=== PATIENT | male | born 1975 | race Caucasian/White ===

== ENCOUNTER 2019-12-06 13:43 | Emergency (ER) | payer SELFPAY ==
[2019-12-06 13:44] VITALS: BP 148/104; PULSE 87; RESP 17; TEMP 37.2; O2SAT 96; BMI 24.4
--- NOTE | 2019-12-06 13:52 | XR_ITS ---
WS: [id number] PORTABLE CHEST HISTORY: cough COMPARISON: None available. Lungs are clear and well expanded. No pleural effusion or pneumothorax. Cardiac size: Normal. Mediastinum/Aorta: Normal mediastinum. No osseous abnormality seen. XR/XR chest 1V portable [id number] IMPRESSION: Unremarkable portable chest.
--- NOTE | 2019-12-06 13:52 | CTR_ITS ---
PROCEDURE INFORMATION: Exam: CT Head Without Contrast Exam date and time: 12/06/2019 2:00 PM Age: 44 years old Clinical indication: Pain; Headache not specified; Prior surgery; Surgery date: 6+ months; Surgery type: Facial; Patient HX: C/O JULIEN w fever x 4-5 days; Additional info: Julien/ams TECHNIQUE: Imaging protocol: Computed tomography of the head without contrast. Total DLP: 731.19 mGy-cm Radiation optimization: All CT scans at this facility use at least one of these dose optimization techniques: automated exposure control; mA and/or kV adjustment per patient size (includes targeted exams where dose is matched to clinical indication); or iterative reconstruction. COMPARISON: No relevant prior studies available. FINDINGS: Brain: No hemorrhage. Unremarkable white matter. No mass effect. Ventricles: Normal. No ventriculomegaly. Bones/joints: Unremarkable. No acute fracture. Sinuses: No acute sinusitis. Mastoid air cells: Unremarkable. Soft tissues: Unremarkable. CT/CT head wo con* [id number] IMPRESSION: No acute intracranial abnormality. Radiation Dose CTDIVOL = (mGy): DLP = 731.19 (mGy-cm)
--- NOTE | 2019-12-06 13:54 | W.ED.HA ---
HPI - Headache General: Chief Complaint: Headache Stated Complaint: julien Time Seen by Provider: 12/06/19 13:44 History of Present Illness: HPI Narrative: Ron is a nice 44-year-old male who comes in complaining of headache. He has a headache he states behind his eyes, his temples and his forehead and top of his head. Is been present for the past 5 days and will wax and wane in intensity. He has had associated nausea and vomiting with it. He denies any neck stiffness or pain. He denies any skin rashes or lesions. He has had tick bites in the past but she states he can get sick from tick bites as well. He denies any other complaints. Associated symptoms: Reports nausea and vomiting; Deny chest pain, confusion, diaphoresis, fever(s), malaise, pre-syncope, rash or syncope Review of Systems General: Reports: other (negative unless marked) Const: Denies: fever, chills, body aches, fatigue, malaise or diaphoresis Eyes: Denies: change in vision or blurry vision ENMT: Denies: throat pain, painful swallowing, hoarseness, ear pain, ear discharge, Change in hearing or nasal discharge Card: Denies: chest pain, palpitations, irregular heart rhythm, syncope, pre-syncope, shortness of breath on exertion or shortness of breath when lying down Resp: Denies: shortness of breath, productive cough, non-productive cough, wheezing, coughing up blood or chest congestion GI: Reports: nausea and vomiting; Denies: abdominal pain, vomiting blood, coffee grounds in vomit, diarrhea, constipation, cramping, blood in stool or black tarry stool : Denies: flank pain, difficulty urinating, painful urination, urinary frequency, urinary urgency, decreased urine ouput, urinary incontinence or blood in urine Musc: Denies: neck pain, back pain, extremity pain, extremity swelling, joint pain, joint swelling, joint warmth or joint stiffness Skin/Breast: Denies: rash, skin tenderness or yellow skin Neuro: Reports: headache; Denies: numbness in extremities, weakness in extremities, changes in sensation, lack of coordination, difficulty walking, dizziness, vertigo or confusion Endo: Denies: excessive thirst, tired all the time, cold intolerance, excessive sweating, flushing or hot flashes Rg/Lymph: Denies: easy bruising, easy bleeding, petechiae or enlarged lymph nodes All/Imm: Denies: hives, throat swelling, tongue swelling, facial swelling or acute wheezing PFSH ED PFSH: Medical History (Updated 12/06/19 @ 15:33 by Ana Laura Aguilar) No pertinent past medical history Social History Smoking and tobacco status: current some day smoker Physical Exam Const: COMMON NORMALS: no apparent distress, oriented x3, no limitations, healthy appearing and well nourished EXAM LIMITATIONS: no altered mental status GENERAL APPEARANCE: cooperative, well kempt and well developed ORIENTATION/CONSCIOUSNESS: Yes awake HENMT: COMMON NORMALS: normocephalic, head/scalp atraumatic, hearing grossly normal bilaterally, external ears normal, EAC's normal, external nose normal and moist oral mucous membranes HEAD & SCALP: normal to inspection, normocephalic and atraumatic FACE & SINUS: normal facial exam and face symmetric NOSE: external nose normal and nares normal EXTERNAL EAR: Yes external ears normal EXTERNAL AUDITORY CANAL: EAC's normal MOUTH: oral and palatal mucosa normal and tongue normal Eye: COMMON NORMALS: PERRL, EOMs intact bilaterally, conjunctivae normal and no scleral icterus GENERAL EYE: normal appearance of both eyes and normal light reflex CONJUNCTIVA: Yes conjunctivae normal SCLERA: sclerae normal CORNEA: Yes corneas normal PUPIL: Yes PERRL DIRECT OPHTHALMOSCOPY: Yes normal light reflex Neck/C-Spine: COMMON NORMALS: full ROM, no lymphadenopathy, supple, no meningeal signs and no JVD GENERAL: Yes normal visual inspection and Yes trachea midline CERVICAL SPINE: Yes cervical ROM normal Chest: COMMONS NORMALS: inspection of chest normal and palpation of chest normal Resp: COMMON NORMALS: normal respiratory effort, no retractions, no use of accessory muscles and clear to auscultation bilaterally EFFORT & INSPECTION: Yes able to speak in complete sentences AUSCULTATION: clear to auscultation bilaterally Cardio: COMMON NORMALS: no JVD, regular rate, regular rhythm, S1 normal heart sound, S2 normal heart sound, no gallops, no clicks, no murmurs and no rub JUGULAR VENOUS DISTENTION: no JVD RATE: regular rate RHYTHM: regular rhythm HEART SOUNDS: S1 normal and S2 normal GI: COMMON NORMALS: soft to palpation, non-tender, no hepatosplenomegaly and no masses INSPECTION: Yes normal to inspection PALPATION: Yes soft and Yes no hepatosplenomegaly : COMMON NORMALS: Yes no CVA tenderness BLADDER/KIDNEY EXAM: Yes no CVA tenderness Back/Pelvis: COMMON NORMALS: no CVA tenderness, thoracic and lumbar spine normal to inspection, no thoracic nor lumbar tenderness and thoraco-lumbar ROM normal Extremity: COMMON NORMALS: normal to inspection, full ROM, normal capillary refill, no joint enlargement, no clubbing, cyanosis or edema and no calf tenderness Neuro: COMMON NORMALS: oriented x3, CN's II-XII intact bilaterally, moves all extremities, no focal motor deficits and no sensory deficits noted MENINGEAL SIGNS: Yes no meningeal signs Psych: COMMON NORMALS: mental status grossly normal, thought process normal, cooperative, affect normal, speech normal and activity/motor behavior normal APPEARANCE: Yes well kempt SPEECH: Yes normal speech THOUGHT PROCESS: normal thought process Skin: COMMON NORMALS: no rashes or lesions noted, skin turgor normal, no jaundice, no petechiae and no mottling GENERAL SKIN EXAM: no rashes or lesions noted and turgor normal Course ED course: 0230 -I have had a discussion with the patient in regards to his normal head CT. I have informed him I believe we will need to do 2 things moving forward. First I have informed him I believe a lumbar puncture/spinal tap is necessary to rule out meningitis as a cause for his pain but he is refusing at this time. I made him aware of the potential for or severe permanent disability by missing this but he believes that since his fever has resolved he no longer would have anything like this and he is refusing that procedure at this time. The other issue is his low sodium. 126 is a change for him and I believe he would be benefited from coming in for gentle slow rehydration but he is also refusing this at this time. The patient said he will continue to consider this as I give him some fluids here but he does not want to stay in the hospital nor does he want a spinal tap. Vital Signs: Vital signs: Vital Signs Temperature 98.9 F 12/06/19 13:44 Pulse Rate 87 12/06/19 13:44 Respiratory Rate 17 12/06/19 13:44 Blood Pressure 148/104 12/06/19 13:44 Pulse Oximetry 96 12/06/19 13:44 MDM - Headache MDM Narrative: Medical decision making narrative: Ron is a nice 44-year-old male who comes in complaining of headache. I would like to perform a spinal tap to rule out meningitis but he is still refusing. He does not have a fever today and he has no neck pain or stiffness. His white count is slightly elevated. I reviewed with him at length the risks of missing meningitis by him not allowing us to do a spinal tap but he understands. I do not believe he thinks the risks are as high as I have told him but he was able to ask questions to his satisfaction and with my answers was able to ask more questions and seems to be satisfied and is still declining this test. I then recommended observation admission to treat his hyponatremia which also could be causing his headache but he is refusing this as well. I discussed the case with Dr. Head who sees the patient at [facility] and he understands the patient's decisions. He agrees to recheck the patient in his office in the next 1 to 3 days to see how he is doing clinically and to recheck his sodium. The patient understands that he needs to do this and he will follow a fluid restricted diet and try to increase his salt intake. Lab Data: Attestation: I reviewed the patient's lab results. Labs: Lab Results 12/06/19 12/06/19 Range/Units 13:58 13:58 WBC 12.9 H (4.0-10.0) 10^3/ uL RBC 5.18 (4.1-5.3) 10^6/u L Hgb 17.2 H (11.7-16.6) g/dL Hct 48.0 (42.0-52.0) % MCV 92.7 (80-94) fL MCH 33.2 (28.0-34.0) pg MCHC 35.8 (30.0-36.0) g/dL RDW 11.2 L (12.1-15.1) % Plt Count 278 (130-400) 10^3/c mm MPV 9.8 (7.4-10.4) fL Neut % (Auto) 71.2 % Lymph % (Auto) 17.4 % [place] % (Auto) 10.0 % Eos % (Auto) 0.7 % Baso % (Auto) 0.5 % Neut # (Auto) 9.2 H (1.8-7.7) 10^3/u L Lymph # (Auto) 2.3 (0.8-4.8) 10^3/u L [place] # (Auto) 1.3 H (0.2-0.9) 10^3/u L Eos # (Auto) 0.1 (0.0-0.8) 10^3/u L Baso # (Auto) 0.1 (0.0-0.1) 10^3/u L Nucleated RBC % (a uto) 0 % Nucleated RBCs # 0.0 /100WBC Sodium 126 L (136-145) mmol/L Potassium 4.2 (3.5-5.1) mmol/L Chloride 88 L (98-107) mmol/L Carbon Dioxide 24 (22-29) mmol/L Anion Gap 18.2 (5-19) BUN 13 (6-20) mg/dL Creatinine 0.9 (0.7-1.2) mg/dL GFR Calculation 92.5 (90-130) mL/min Glucose 120 H (65-115) mg/dL Calculated Osmolal ity 259 L (285-295) mOsm/k g Calcium 9.2 (8.5-10.5) mg/dL Total Bilirubin 1.0 (0.15-1.2) mg/dL AST 14 (0-40) U/L ALT 15 (0-41) U/L Alkaline Phosphata se 80 (40-130) IU/L Total Protein 7.6 (6.6-8.7) g/dL Albumin 4.6 (3.5-5.2) g/dL Globulin 3.0 (1.3-4.6) g/dL Imaging Data^: CT Head: Radiologist's impression: [address] [place] [address] CT Scan Report Signed Patient: Ron Feldman Unit #: [id number] : 1975 Age/Sex: 44 / M ADM Date: 12/06/19 Loc: ER Room/Bed: Attending Dr: Ordering Provider/Ordering MD: Ana Laura Aguilar DO Date of Service: 12/06/19 Procedure(s): CT head wo con* [id number] Accession Number(s): [id number] Report Number: [id number] PROCEDURE INFORMATION: Exam: CT Head Without Contrast Exam date and time: 12/06/2019 2:00 PM Age: 44 years old Clinical indication: Pain; Headache not specified; Prior surgery; Surgery date: 6+ months; Surgery type: Facial; Patient HX: C/O JULIEN w fever x 4-5 days; Additional info: Julien/ams TECHNIQUE: Imaging protocol: Computed tomography of the head without contrast. Total DLP: 731.19 mGy-cm Radiation optimization: All CT scans at this facility use at least one of these dose optimization techniques: automated exposure control; mA and/or kV adjustment per patient size (includes targeted exams where dose is matched to clinical indication); or iterative reconstruction. COMPARISON: No relevant prior studies available. FINDINGS: Brain: No hemorrhage. Unremarkable white matter. No mass effect. Ventricles: Normal. No ventriculomegaly. Bones/joints: Unremarkable. No acute fracture. Sinuses: No acute sinusitis. Mastoid air cells: Unremarkable. Soft tissues: Unremarkable. CT/CT head wo con* [id number] IMPRESSION: No acute intracranial abnormality. Radiation Dose CTDIVOL = (mGy): DLP = 731.19 (mGy-cm) Dictated By: Luis Bartlett MD Signed By: Luis Bartlett MD Signed Date/Time: 12/06/191421 DD/ 20 CXR: My impression: Possible right middle lobe infiltrate. Discharge Plan Discharge Patient Disposition: Home, Self-Care Clinical Impression: Acute hyponatremia Headache Qualifiers: Headache type: unspecified Headache chronicity pattern: acute headache Intractability: not intractable Qualified Code(s): R51 - Headache Pneumonia Qualifiers: Pneumonia type: due to unspecified organism Laterality: right Lung location: middle lobe of lung Qualified Code(s): J18.9 - Pneumonia, unspecified organism Condition: Stable Prescriptions: New Levaquin 500 mg tablet 500 mg PO DAILY 10 Days RF: 0 No Action Multiple Vitamins Tablet 1 tab PO DAILY RF: 0 Discharge Orders: Discharge Order (Routine); Ordered 12/06/19 Ordered By: Ana Laura Aguilar Referrals: Kraig Ortez MD [Family Provider] - 1-3 days Discharge Diet: Advance as tolerated Discharge Activity: Resume usual activity Patient Instructions: Hyponatremia (ED), Acute Headache (ED), Legionnaires Disease (ED), Pneumonia (ED) Activity Restrictions/Additional Instructions: Please return to the ER immediately for any of the signs or symptoms listed on your discharge instruction sheets, worsening/changing of your symptoms, you are not getting better as quickly as expected, or for ANY other cause or concerns. You are leaving AGAINST MEDICAL ADVICE as I have advised you to stay for observation and IV hydration. By leaving you put yourself at risk of or severe permanent disability by doing so. If you change your mind you are more than welcome to return at any time. Be certain to follow-up with Dr. Head or 1 of the physicians at [facility] in the next 1 to 2 days for recheck. Limit the amount of water intake that you have over the next 2 days and try to increase your salt intake. Discuss your fluid intake with the [facility] physician in the next 1 to 2 days. Coding Level of Care Code ED Fundraising Director for [facility] Fwd Exam Comprehensive
[2019-12-06 14:05] LABS: Basophils # 0.1 10^3/uL (0.0-0.1); Basophils % 0.5 %; Eosinophils # 0.1 10^3/uL (0.0-0.8); Eosinophils % 0.7 %; Hemoglobin 17.2 g/dL (11.7-16.6); Lymphocytes # 2.3 10^3/uL (0.8-4.8); Lymphocytes % 17.4 %; Mean Corpuscular HGB Conc 35.8 g/dL (30.0-36.0); Mean Corpuscular Hemoglobin 33.2 pg (28.0-34.0); Mean Corpuscular Volume 92.7 fL (80-94); Mean Platelet Volume 9.8 fL (7.4-10.4); Monocytes # 1.3 10^3/uL (0.2-0.9); Neutrophils # 9.2 10^3/uL (1.8-7.7); Neutrophils % 71.2 %; Nucleated Red Blood Cells % 0 %; Platelet Count 278 10^3/cmm (130-400); Red Blood Count 5.18 10^6/uL (4.1-5.3); Red Cell Distribution Width 11.2 % (12.1-15.1); White Blood Count 12.9 10^3/uL (4.0-10.0)
[2019-12-06 14:21] LABS: Alanine Aminotransferase 15 U/L (0-41); Albumin Level 4.6 g/dL (3.5-5.2); Alkaline Phosphatase 80 IU/L (40-130); Anion Gap 18.2 (5-19); Aspartate Amino Transferase 14 U/L (0-40); Blood Urea Nitrogen 13 mg/dL (6-20); Calcium 9.2 mg/dL (8.5-10.5); Carbon Dioxide 24 mmol/L (22-29); Chloride 88 mmol/L (98-107); Glomerular Filtration Rate 92.5 mL/min (90-130); Glucose 120 mg/dL (65-115); Osmolality Calculated 259 mOsm/kg (285-295); Potassium 4.2 mmol/L (3.5-5.1); Sodium 126 mmol/L (136-145); Total Protein 7.6 g/dL (6.6-8.7)
[2019-12-06] MEDS: sodium chloride 0.9% 1,000 ML 999 ML IV ×2 (15:22→15:40)
[2019-12-06] MEDS: metoclopramide 5 mg/mL SDV 2 mL 10 MG IV (15:41)
[2019-12-06] MEDS: diphenhydrAMINE 50 mg/mL SDV 1mL 25 MG IVP (15:42)
[2019-12-06 15:54] LABS: Glucose Urine UA Norm (Normal); Protein Urine Neg (Negative); Urine Appearance Clear (CLEAR); Urine Color Yellow (Yellow); pH Urine 5 (5-7)
[2019-12-06 15:55] LABS: Bilirubin Urine 1+ (NEGATIVE); Blood Urine Neg (Negative); Ketones Urine 1+ (Negative); Leukocyte Esterase Urine Negative (Negative); Nitrate Urine Negative (Negative); Sulfosalicylic Acid Urine Negative (Negative); Urobilinogen Urine 4 mg/dL (Negative)
[2019-12-06 16:02] LABS: Add Urine Culture? No; Bacteria Urine 1+; Mucus Urine 1+; WBC Urine 0-4 /hpf (0-5)
[2019-12-06 16:10] LABS: Influenza A by IFA Negative (Negative); Influenza B by IFA Negative (Negative)
[2019-12-06] MEDS: levoFLOXacin 500 mg Tablet PO (16:27)
[2019-12-06 16:31] VITALS: BP 114/80; PULSE 76; RESP 18; TEMP 37.1; O2SAT 96
== END 2019-12-06 16:52 | disposition home or self-care (01) ==
PROVIDERS: Emergency Provider Emergency Medicine; Family Provider General Practice
DX: R51 Headache (principal); J18.9 Pneumonia, unspecified organism; E87.1 Hypo-osmolality and hyponatremia; F17.210 Nicotine dependence, cigarettes, uncomplicated
CPT/HCPCS: 12345; 70450; 71045; 80053; 81001; 85025; 87804; 96361; 96374; 96375; 99283; 99284; A9270; J0131; J1200; J2765; J7030

== ENCOUNTER 2019-12-08 09:06 | Inpatient (IN) | payer SELFPAY ==
[2019-12-08] VITALS (17 sets, daily range): BP systolic 112–139; BP diastolic 69–93; PULSE 61–90; RESP 16–22; TEMP 36.9–37.1; O2SAT 92–98; BMI 25.0
--- NOTE | 2019-12-08 10:26 | W.ED.GENADLT ---
HPI - General Adult General: Chief complaint: General Medical Stated complaint: POSS MENINGITIS Time Seen by Provider: 12/08/19 09:20 Review of Systems General: Reports: 10 or more systems reviewed and unremarkable except in HPI and below Narrative: Patient was seen in the emergency department 2 days ago. That time the provider wanted to do a lumbar puncture to rule out meningitis as the patient has had a severe headache for several days. Patient refused the LP but returns today with complaint of continued and increasing in severity headache. Musc: Reports: neck pain PFSH ED PFSH: Medical History No pertinent past medical history Social History Smoking and tobacco status: current every day smoker Physical Exam Const: COMMON NORMALS: oriented x3 and alert ORIENTATION/CONSCIOUSNESS: Yes oriented to person, Yes oriented to place and Yes oriented to time Neck/C-Spine: COMMON NORMALS: no JVD Resp: COMMON NORMALS: normal respiratory effort, no retractions, no use of accessory muscles and clear to auscultation bilaterally AUSCULTATION: clear to auscultation bilaterally Cardio: COMMON NORMALS: no JVD, regular rate and regular rhythm RATE: regular rate RHYTHM: regular rhythm GI: COMMON NORMALS: normal to inspection, nondistended, normoactive bowel sounds Extremity: COMMON NORMALS: normal to inspection, full ROM and normal capillary refill Neuro: COMMON NORMALS: oriented x3 SENSORIUM/ORIENTATION: Yes alert, Yes oriented to person, Yes oriented to place and Yes oriented to time MENINGEAL SIGNS: Yes nuccal rigidity (minimal) Procedures Lumbar Puncture Patient Position: right lateral decubitus Skin Prep: Povidone-Iodine 1% Local Anesthetic: lidocaine 1% Spinal Needle Gauge: 22G Interspace Used: L4-L5 Fluid Initially Obtained: clear Complications: none Course Vital Signs: Vital signs: Vital Signs Temperature 98.5 F 12/08/19 09:15 Pulse Rate 90 12/08/19 09:15 Respiratory Rate 18 12/08/19 10:57 Blood Pressure 139/93 12/08/19 09:15 Pulse Oximetry 96 12/08/19 10:57 MDM - General Adult Lab Data: Labs: Lab Results 04/28/20 04/28/20 04/28/20 Range/Units 10:25 10:25 10:25 WBC 12.8 H (4.0-10.0) 10^3/ uL RBC 5.19 (4.1-5.3) 10^6/u L Hgb 17.1 H (11.7-16.6) g/dL Hct 48.1 (42.0-52.0) % MCV 92.7 (80-94) fL MCH 32.9 (28.0-34.0) pg MCHC 35.6 (30.0-36.0) g/dL RDW 11.2 L (12.1-15.1) % Plt Count 266 (130-400) 10^3/c mm MPV 10.1 (7.4-10.4) fL Neut % (Auto) 76.7 % Lymph % (Auto) 12.6 % [place] % (Auto) 9.3 % Eos % (Auto) 0.4 % Baso % (Auto) 0.5 % Neut # (Auto) 9.8 H (1.8-7.7) 10^3/u L Lymph # (Auto) 1.6 (0.8-4.8) 10^3/u L [place] # (Auto) 1.2 H (0.2-0.9) 10^3/u L Eos # (Auto) 0.1 (0.0-0.8) 10^3/u L Baso # (Auto) 0.1 (0.0-0.1) 10^3/u L Nucleated RBC % (a uto) 0 % Nucleated RBCs # 0.0 /100WBC Sodium 127 L (136-145) mmol/L Potassium 4.3 (3.5-5.1) mmol/L Chloride 89 L (98-107) mmol/L Carbon Dioxide 24 (22-29) mmol/L Anion Gap 18.3 (5-19) BUN 10 (6-20) mg/dL Creatinine 0.8 (0.7-1.2) mg/dL GFR Calculation 106.0 (90-130) mL/min Glucose 116 H (65-115) mg/dL Calculated Osmolal ity 261 L (285-295) mOsm/k g Lactate 1.0 (0.5-2.2) mmol/L Calcium 8.9 (8.5-10.5) mg/dL Total Bilirubin 0.9 (0.15-1.2) mg/dL AST 12 (0-40) U/L ALT 14 (0-41) U/L Alkaline Phosphata se 72 (40-130) IU/L Total Protein 7.4 (6.6-8.7) g/dL Albumin 4.5 (3.5-5.2) g/dL Globulin 2.9 (1.3-4.6) g/dL CSF Appearance (CLEAR) CSF Color (COLORLESS) CSF WBC (0-5) /uL CSF RBC (0-0) 10^3/uL CSF Mononuclear # Auto (50-90) 10^3/uL CSF Mononuclear WB Cs % (50-90) % CSF Polynuclear WB Cs # (0-10) 10^3/uL CSF Polynuclear WB Cs % (0-10) % CSF Glucose (40-70) mg/dL CSF Total Protein (15-45) mg/dL 12/08/19 Range/Units 11:40 WBC (4.0-10.0) 10^3/ uL RBC (4.1-5.3) 10^6/u L Hgb (11.7-16.6) g/dL Hct (42.0-52.0) % MCV (80-94) fL MCH (28.0-34.0) pg MCHC (30.0-36.0) g/dL RDW (12.1-15.1) % Plt Count (130-400) 10^3/c mm MPV (7.4-10.4) fL Neut % (Auto) % Lymph % (Auto) % [place] % (Auto) % Eos % (Auto) % Baso % (Auto) % Neut # (Auto) (1.8-7.7) 10^3/u L Lymph # (Auto) (0.8-4.8) 10^3/u L [place] # (Auto) (0.2-0.9) 10^3/u L Eos # (Auto) (0.0-0.8) 10^3/u L Baso # (Auto) (0.0-0.1) 10^3/u L Nucleated RBC % (a uto) % Nucleated RBCs # /100WBC Sodium (136-145) mmol/L Potassium (3.5-5.1) mmol/L Chloride (98-107) mmol/L Carbon Dioxide (22-29) mmol/L Anion Gap (5-19) BUN (6-20) mg/dL Creatinine (0.7-1.2) mg/dL GFR Calculation (90-130) mL/min Glucose (65-115) mg/dL Calculated Osmolal ity (285-295) mOsm/k g Lactate (0.5-2.2) mmol/L Calcium (8.5-10.5) mg/dL Total Bilirubin (0.15-1.2) mg/dL AST (0-40) U/L ALT (0-41) U/L Alkaline Phosphata se (40-130) IU/L Total Protein (6.6-8.7) g/dL Albumin (3.5-5.2) g/dL Globulin (1.3-4.6) g/dL CSF Appearance Clear (CLEAR) CSF Color Colorless (COLORLESS) CSF WBC 69 H (0-5) /uL CSF RBC 0 (0-0) 10^3/uL CSF Mononuclear # Auto 0.067 L (50-90) 10^3/uL CSF Mononuclear WB Cs % 97 H (50-90) % CSF Polynuclear WB Cs # 0.002 (0-10) 10^3/uL CSF Polynuclear WB Cs % 3 (0-10) % CSF Glucose 61 (40-70) mg/dL CSF Total Protein 85 H (15-45) mg/dL Discharge Plan Discharge Patient Disposition: Admitted As Inpatient Clinical Impression: Meningitis, Acute hyponatremia Headache Qualifiers: Headache type: unspecified Headache chronicity pattern: acute headache Intractability: intractable Qualified Code(s): R51 - Headache Condition: Fair Referrals: Kraig Ortez MD [Family Provider] - Coding Level of Care Code ED Gym Manager for [facility] Fwd Exam Detailed
[2019-12-08 10:37] LABS: Basophils # 0.1 10^3/uL (0.0-0.1); Basophils % 0.5 %; Eosinophils # 0.1 10^3/uL (0.0-0.8); Eosinophils % 0.4 %; Hematocrit 48.1 % (42.0-52.0); Hemoglobin 17.1 g/dL (11.7-16.6); Lymphocytes # 1.6 10^3/uL (0.8-4.8); Lymphocytes % 12.6 %; Mean Corpuscular HGB Conc 35.6 g/dL (30.0-36.0); Mean Corpuscular Hemoglobin 32.9 pg (28.0-34.0); Mean Corpuscular Volume 92.7 fL (80-94); Mean Platelet Volume 10.1 fL (7.4-10.4); Monocytes # 1.2 10^3/uL (0.2-0.9); Monocytes % 9.3 %; Neutrophils # 9.8 10^3/uL (1.8-7.7); Neutrophils % 76.7 %; Nucleated Red Blood Cells % 0 %; Platelet Count 266 10^3/cmm (130-400); Red Blood Count 5.19 10^6/uL (4.1-5.3); Red Cell Distribution Width 11.2 % (12.1-15.1); White Blood Count 12.8 10^3/uL (4.0-10.0)
[2019-12-08] MEDS: ondansetron 2 mg/ML SDV 2 mL 4 MG IVP ×2 (10:48→13:48)
[2019-12-08 10:51] LABS: Alanine Aminotransferase 14 U/L (0-41); Albumin Level 4.5 g/dL (3.5-5.2); Alkaline Phosphatase 72 IU/L (40-130); Anion Gap 18.3 (5-19); Aspartate Amino Transferase 12 U/L (0-40); Blood Urea Nitrogen 10 mg/dL (6-20); Calcium 8.9 mg/dL (8.5-10.5); Carbon Dioxide 24 mmol/L (22-29); Chloride 89 mmol/L (98-107); Globulin 2.9 g/dL (1.3-4.6); Glucose 116 mg/dL (65-115); Osmolality Calculated 261 mOsm/kg (285-295); Potassium 4.3 mmol/L (3.5-5.1); Sodium 127 mmol/L (136-145); Total Bilirubin 0.9 mg/dL (0.15-1.2); Total Protein 7.4 g/dL (6.6-8.7)
[2019-12-08] MEDS: ketorolac 30 mg/mL INJ IVP (10:51)
[2019-12-08] MEDS: dexamethasone 10 mg/mL INJ IVP (10:53)
[2019-12-08] MEDS: diphenhydrAMINE 50 mg/mL SDV 1mL IVP (10:55)
[2019-12-08] MEDS: morphine 4 mg/mL SDV 1 mL 2 MG IVP ×2 (10:57→13:48)
[2019-12-08 12:09] LABS: CSF Mononuclear # 0.067 10^3/uL (50-90); Mononuclear WBC CSF % 97 % (50-90); Polynuclear Cells ,CSF # 0.002 10^3/uL (0-10); Polynuclear WBC CSF % 3 % (0-10); Red Blood Cell CSF 0 10^3/uL (0-0); White Blood Cell CSF 69 /uL (0-5)
[2019-12-08 12:12] LABS: Appearance CSF CLEAR (CLEAR); Color CSF COLORLESS (COLORLESS)
[2019-12-08 12:23] LABS: Glucose CSF 61 mg/dL (40-70); Total Protein CSF 85 mg/dL (15-45)
[2019-12-08] MEDS: cefTRIAXone 1,000 MG in sodium chloride 0.9% (plus) 50 ML 100 MG IV ×2 (13:47→19:19)
[2019-12-08] MEDS: sodium chloride 0.9% 1,000 ML 100 ML IV ×2 (13:47→21:54)
[2019-12-08] MEDS: acetaminophen 325 mg Tablet 650 MG PO (13:48)
[2019-12-08 17:16] LABS: Thyroid Stimulating Hormone 0.82 uIU/mL (0.27-4.20)
[2019-12-08 17:23] LABS: Rapid Plasma Reagin Syphilis Nonreactive (Nonreactive)
[2019-12-08] MEDS: enoxaparin 40 mg/0.4 mL Syringe SUBCUT (18:47)
--- NOTE | 2019-12-08 19:18 | P.HP_ITS ---
Providers/Chief Complaint Admitting Physician: Clair Sexton MD Chief Complaint: MENINGITIS History of Present Illness Ron Feldman is a 44 year old male with some significant past medical history who presents with complaints of headache and neck stiffness. Patient was in his usual state of health until Saturday(today is Saturday) when upon returning home from work he started to complain of intense headache. He says he went right to bed he was noted to have chills and intense sweating, checked his temperature at home and it was 804 Fahrenheit. Through the week he continued to have headache and intermittent chills, however he did not check his temperature again. He Presented to the emergency room 2 days ago with these above complaints and at that time underwent a CT of the head which was unremarkable. He was noted to have a sodium of 127. Was also recommended to undergo an LP to rule out meningitis, however he declined and elected to return home with PCP follow-up. He returns today because his headache was worsening. Since presentation to the ER he has undergone an lumbar puncture which is showed elevated protein and elevated cell count, predominantly monocytosis. He has received a dose of ceftriaxone 1 g IV and states feeling much better these interventions were instituted. He denies any recent URI symptoms. Denies any sick contacts. Denies any contact with anybody with known COVID. Denies recent travel. 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 He did deliver some calves recently. No history of animal bites. No history of consumption of unpasteurized products. No history of diarrhea or abdominal pain. He does report vomiting 1-2 episodes per day since onset of symptoms and also photophobia. No past history of HIV. No rashes. He has recently been pulling ticks off of him on multiple occassions Review of Systems General: Reports: 10 or more systems reviewed and unremarkable except in HPI and below Const: Denies: fever, chills or body aches Eyes: Denies: change in vision, blurry vision or photophobia ENMT: Denies: throat pain, enlarged tonsils, painful swallowing, hoarseness or nasal congestion Card: Denies: chest pain, palpitations, irregular heart rhythm, edema, swelling of feet/ankles, lightheadedness, pre-syncope, shortness of breath on exertion or shortness of breath when lying down Resp: Denies: shortness of breath, productive cough, non-productive cough, wheezing, stridor, pain on inspiration, change in phlegm color, coughing up blo od or chest congestion GI: Denies: abdominal pain, nausea, vomiting, vomiting blood, coffee grounds in vomit, difficulty swallowing, heartburn/indigestion, diarrhea, constipation, cramping, change in stool character, blood in stool or black tarry stool : Denies: flank pain, painful urination, urinary frequency, urinary urgency, urinary hesitancy or blood in urine Musc: Reports: neck pain; Denies: back pain, extremity pain, joint swelling, joint warmth or deformity Neuro: Reports: headache and difficulty walking; Denies: numbness in extremities, weakness in extremities, changes in sensation, frequent falls, dizziness, vertigo, behavioral changes, slurred speech or seizure-like activity Psych: Denies: anxiety, depression, suicidal ideation or homicidal ideation Endo: Reports: hot flashes; Denies: excessive urination, excessive thirst, tired all the time or cold intolerance Rg/Lymph: Denies: easy bruising or easy bleeding Medications/Allergies Home Medications Medication Instructions Recorded Confirmed Last Taken Type levofloxacin [Levaquin] 500 mg PO DAILY 10 Days tab 12/06/19 12/08/19 12/08/19 Rx multivitamin [Multiple Vitamins] 1 tab PO DAILY 12/06/19 12/08/19 12/02/19 History Allergies Allergy/AdvReac Type Severity Reaction Status Date / Time Penicillins Allergy ALGY-Anaphy Verified 12/06/19 13:53 laxis PFSH Acute PFSH: Medical History No pertinent past medical history Social History Smoking and tobacco status: current every day smoker Vitals/I&O/Wt Last Vital Signs Temp 98.7 F 12/08/19 14:50 Pulse 61 12/08/19 16:24 Resp 16 12/08/19 16:24 BP 112/69 12/08/19 16:24 Pulse Ox 96 12/08/19 16:24 12/08/19 12/08/19 12/08/19 06:59 14:59 22:59 Intake Total 1050 / 1050 Balance 1050 / 1050 Weight last 48 hrs Weight 83.915 kg Physical Exam Narrative: EXAM NARRATIVE: GEN: Awake, alert and oriented, no acute distress CVS: S1S2 N RS: CTA B/L Abd: Soft, nt/nd , bs+ PHOTOGRAPHY ASSISTANT: no focal neuro deficits, no neck stiffness at present time, however patient states this is improving Skin : no rashes ext: no joint swelling or edema Data : 12/08/19 10:25 12/08/19 10:25 Micro: Microbiology 12/08/19 11:40 Bacterial Antigens - Final Cerebrospinal Fluid 12/08/19 11:40 Gram Stain - Final Cerebrospinal Fluid 12/08/19 10:30 Blood Culture - Preliminary Blood SPECIMEN COLLECTED 12/08/19 10:25 Blood Culture - Preliminary Blood SPECIMEN COLLECTED A&P Assessment and plan (1) Headache: Status: Acute Qualifiers: Headache chronicity pattern: acute headache Headache type: unspecified Intractability: intractable Qualified Code(s): R51 - Headache (2) Meningitis: Status: Acute (3) Acute hyponatremia: Status: Acute Additional A&P Information Admit to med/surg # Meningitis based on clinical history and LP findings of elevated cell count and protein. CSF glucose normal. No organisms on gram stain. Based on duration of symptoms ongoing for a week and CSF analysis, suspect most likely cause to be aseptic viral meningitis vs tick borne illness. CSF cx pending Added on CSF lyme antibodies, CSF VDRL, CSF bacterial antigen panel, CSF HSV1/2 PCR From serum, check tick panel, lyme serology, RPR, HIV COVID 19 nasal swab and viral respiratory panel Empiric Ceftriaxone 2 g iv q24h, holding off on ACV for now given low suspicion for HSV meningitis # Hyponatremia, presumably acute, no baseline available, may be 2/2 dehydration. Check urine osm, urine sodium. Check serum TG levels. Full code DVt ppx: lovenox Attestations Medical Necessity Statement*: anticipate >2 midnight for work up and management of meningitis Coding Level of Care Code Acute Supervisor Agency Appointments for Chg Fwd Diagnoses Headache R51 Headache chronicity pattern: acute headache Headache type: unspecified Intractability: intractable Meningitis G03.9 Acute hyponatremia E87.1
[2019-12-09] VITALS (15 sets, daily range): BP systolic 108–136; BP diastolic 63–84; PULSE 60–87; RESP 14–22; TEMP 36.7–37.2; O2SAT 93–97; BMI 21.9
[2019-12-09 01:13] LABS: HIV 1 & 2 Antibody Non-Reactive (Non-Reactiv); HIV 1 & 2 Antigen Non-Reactive (Non-Reactiv)
[2019-12-09 02:00] LABS: Urine Random Sodium 23 mmol/L
[2019-12-09] MEDS: acetaminophen 325 mg Tablet 650 MG PO ×3 (04:11→23:30)
[2019-12-09 04:48] LABS: Basophils # 0.1 10^3/uL (0.0-0.1); Basophils % 0.5 %; Eosinophils # 0.1 10^3/uL (0.0-0.8); Eosinophils % 0.5 %; Hematocrit 43.3 % (42.0-52.0); Lymphocytes # 3.6 10^3/uL (0.8-4.8); Lymphocytes % 23.7 %; Mean Corpuscular HGB Conc 34.6 g/dL (30.0-36.0); Mean Corpuscular Hemoglobin 33.9 pg (28.0-34.0); Mean Platelet Volume 10.5 fL (7.4-10.4); Monocytes # 1.3 10^3/uL (0.2-0.9); Monocytes % 8.9 %; Neutrophils # 9.9 10^3/uL (1.8-7.7); Neutrophils % 65.7 %; Nucleated Red Blood Cells % 0 %; Platelet Count 227 10^3/cmm (130-400); Red Blood Count 4.42 10^6/uL (4.1-5.3); Red Cell Distribution Width 11.4 % (12.1-15.1); White Blood Count 15.1 10^3/uL (4.0-10.0)
[2019-12-09 05:04] LABS: Alanine Aminotransferase 10 U/L (0-41); Albumin Level 3.5 g/dL (3.5-5.2); Alkaline Phosphatase 65 IU/L (40-130); Anion Gap 13.6 (5-19); Aspartate Amino Transferase 13 U/L (0-40); Blood Urea Nitrogen 14 mg/dL (6-20); Carbon Dioxide 24 mmol/L (22-29); Chloride 98 mmol/L (98-107); Globulin 2.3 g/dL (1.3-4.6); Glomerular Filtration Rate 81.9 mL/min (90-130); Glucose 95 mg/dL (65-115); Osmolality Calculated 270 mOsm/kg (285-295); Potassium 3.6 mmol/L (3.5-5.1); Sodium 132 mmol/L (136-145); Total Bilirubin 0.7 mg/dL (0.15-1.2); Total Protein 5.8 g/dL (6.6-8.7)
--- NOTE | 2019-12-09 06:32 | PC.NURSE ---
SHIFT SUMMARY PT HAS REMAINED ALERT AND ORIENTATED. PT HAS COMPLAINED OF MILD HEADACHE AND WAS GIVEN TYLENOL. PT ABLE TO GET UP AD CHIP. PT HAS BEEN AFEBRILE. PT HAS NOT COMPLAINED OF ANY NECK STIFFNESS AT THIS TIME.
--- NOTE | 2019-12-09 08:47 | PM.PN ---
Subjective Subjective: Interval history: Ron reports he is doing okay. Headache is much less. Still some neck no stiffness. No vomiting or nausea. Ate well this morning. Willing to try doxycycline again, he had taken 3 doses prior to presentation. Medications: Reviewed: Yes Vitals/I&O/Wt Last Vital Signs Temp 98.3 F 12/09/19 08:34 Pulse 73 12/09/19 08:34 Resp 14 12/09/19 08:34 BP 117/73 12/09/19 08:34 Pulse Ox 95 12/09/19 08:34 12/08/19 12/09/19 12/09/19 22:59 06:59 14:59 Intake Total 1050 / 1050 120 / 1170 Output Total 400 / 400 Balance 650 / 650 120 / 770 Weight last 48 hrs Weight 73.346 kg Weight 83.915 kg Physical Exam Narrative: EXAM NARRATIVE: General exam no apparent distress Cardiovascular regular rate and rhythm without murmur Lungs clear Abdomen is soft and positive bowel sounds Extremities no cyanosis clubbing or edema Data : 12/09/19 04:10 12/09/19 04:10 Micro: Microbiology 12/08/19 11:40 Bacterial Antigens - Final Cerebrospinal Fluid 12/08/19 11:40 Gram Stain - Final Cerebrospinal Fluid 12/08/19 10:30 Blood Culture - Preliminary Blood SPECIMEN COLLECTED 12/08/19 10:25 Blood Culture - Preliminary Blood SPECIMEN COLLECTED A&P Assessment and plan (1) Headache: Viral meningitis likely versus tickborne illness. Doubt bacterial but covering with Rocephin until cultures negative. Status: Acute Qualifiers: Headache chronicity pattern: acute headache Headache type: unspecified Intractability: intractable Qualified Code(s): R51 - Headache (2) Meningitis: See above. CT scan head negative. Continue Rocephin currently at 2 g IV every 24 hours Status: Acute (3) Acute hyponatremia: Improving. Appeared to have hypovolemic hyponatremia. A random cortisol level was low. He has had no hypotension, no hyperkalemia. I think Lakeland's disease is unlikely. We will repeat cortisol level in the morning. Reduce fluids Status: Acute Additional A&P Information Probable tickborne illness. Restart doxycycline 100 mg twice daily to see if he can tolerate this Await tick panel, RPR, HIV, Covid 19 Full code Lovenox for DVT prophylaxis Attestations Medical Necessity Statement*: Needs continued hospital stay for IV antibiotics for probable meningitis. Coding Level of Care Code Acute Hazardous Material Technician for Chg Fwd Diagnoses Headache R51 Headache chronicity pattern: acute headache Headache type: unspecified Intractability: intractable Meningitis G03.9 Acute hyponatremia E87.1
[2019-12-09] MEDS: sodium chloride 0.9% 1,000 ML 100 ML IV ×2 (09:00→21:08)
[2019-12-09] MEDS: doxycycline 100 mg Tablet PO ×2 (09:26→17:58)
[2019-12-09] MEDS: ketorolac 10 mg Tablet PO (10:17)
[2019-12-09] MEDS: cefTRIAXone 2,000 MG in sodium chloride 0.9% (plus) 50 ML 100 MG IV (12:06)
[2019-12-09 13:29] LABS: Coronavirus Lab Test PTC NOT DETECTED
[2019-12-09] MEDS: enoxaparin 40 mg/0.4 mL Syringe SUBCUT (15:27)
[2019-12-09] MEDS: ondansetron 2 mg/ML SDV 2 mL 4 MG IVP (15:41)
[2019-12-10] VITALS (8 sets, daily range): BP systolic 112–150; BP diastolic 70–85; PULSE 72–88; RESP 17–22; TEMP 36.7–37; O2SAT 93–97
[2019-12-10] MEDS: ketorolac 10 mg Tablet PO ×2 (02:24→23:34)
[2019-12-10 05:26] LABS: Basophils # 0.1 10^3/uL (0.0-0.1); Basophils % 0.6 %; Eosinophils # 0.1 10^3/uL (0.0-0.8); Eosinophils % 0.4 %; Hematocrit 44.7 % (42.0-52.0); Lymphocytes # 1.9 10^3/uL (0.8-4.8); Lymphocytes % 14.6 %; Mean Corpuscular HGB Conc 35.8 g/dL (30.0-36.0); Mean Corpuscular Hemoglobin 33.4 pg (28.0-34.0); Mean Corpuscular Volume 93.3 fL (80-94); Monocytes # 0.9 10^3/uL (0.2-0.9); Monocytes % 6.8 %; Neutrophils # 10.1 10^3/uL (1.8-7.7); Neutrophils % 77.3 %; Nucleated Red Blood Cells % 0 %; Platelet Count 255 10^3/cmm (130-400); Red Blood Count 4.79 10^6/uL (4.1-5.3); Red Cell Distribution Width 11.3 % (12.1-15.1); White Blood Count 13.1 10^3/uL (4.0-10.0)
[2019-12-10 05:41] LABS: Alanine Aminotransferase 14 U/L (0-41); Albumin Level 3.6 g/dL (3.5-5.2); Alkaline Phosphatase 65 IU/L (40-130); Anion Gap 14.7 (5-19); Aspartate Amino Transferase 12 U/L (0-40); Blood Urea Nitrogen 11 mg/dL (6-20); Calcium 8.4 mg/dL (8.5-10.5); Carbon Dioxide 22 mmol/L (22-29); Chloride 96 mmol/L (98-107); Globulin 2.5 g/dL (1.3-4.6); Glucose 108 mg/dL (65-115); Osmolality Calculated 265 mOsm/kg (285-295); Potassium 3.7 mmol/L (3.5-5.1); Sodium 129 mmol/L (136-145); Total Bilirubin 0.4 mg/dL (0.15-1.2); Total Protein 6.1 g/dL (6.6-8.7)
[2019-12-10 07:50] LABS: Cortisol Random 13.95 mcg/dL (2.47-19.5)
[2019-12-10] MEDS: acetaminophen 325 mg Tablet 650 MG PO ×2 (09:28→15:29)
[2019-12-10] MEDS: doxycycline 100 mg Tablet PO ×2 (09:29→17:51)
[2019-12-10] MEDS: sodium chloride 0.9% 1,000 ML 100 ML IV (09:31)
--- NOTE | 2019-12-10 12:28 | P.PN_ITS ---
Subjective Subjective: Interval history: Ron reports he had quite a headache last night. It hurts when he moves his eyes in different directions. The light hurts his eyes. Overall he is better than on admission. Medications: Reviewed: Yes Vitals/I&O/Wt Last Vital Signs Temp 98.1 F 12/10/19 11:27 Pulse 75 12/10/19 11:27 Resp 22 H 12/10/19 11:27 BP 112/70 12/10/19 11:27 Pulse Ox 97 12/10/19 11:27 12/09/19 12/10/19 12/10/19 22:59 06:59 14:59 Intake Total 1360 / 2910 1005 / 1005 Output Total 0 / 450 450 / 450 Balance 1360 / 2460 555 / 555 Weight last 48 hrs Weight 76.839 kg Weight 77.247 kg Weight 73.346 kg Weight 73.346 kg Physical Exam Narrative: EXAM NARRATIVE: General exam no apparent distress Cardiovascular regular rate and rhythm without murmur Lungs clear Abdomen is soft and positive bowel sounds Extremities no cyanosis clubbing or edema Data : 12/10/19 04:40 12/10/19 04:40 Micro: Microbiology 12/08/19 10:30 Blood Culture - Preliminary Blood NEGATIVE TO DATE 12/08/19 10:25 Blood Culture - Preliminary Blood NEGATIVE TO DATE 12/08/19 11:40 Gram Stain - Final Cerebrospinal Fluid CSF Culture - Preliminary A&P Assessment and plan (1) Headache: Viral meningitis likely versus tickborne illness. Doubt bacterial but covering with Rocephin until cultures negative. Secondary to persistent symptoms we will increase Rocephin to 2 g IV every 12 hours, await culture results as well as tick titers and viral studies. Status: Acute Qualifiers: Headache chronicity pattern: acute headache Headache type: unspecified Intractability: intractable Qualified Code(s): R51 - Headache (2) Meningitis: See above. CT scan head negative. Continue Rocephin currently at 2 g IV every 12 hours Status: Acute (3) Acute hyponatremia: Improving. Appeared to have hypovolemic hyponatremia. Hyponatremia persists A random cortisol level was low. He has had no hypotension, no hyperkalemia. I think Eliseo's disease is unlikely. Repeat cortisol level was normal Reduce fluids further Status: Acute Additional A&P Information Probable tickborne illness. Continue doxycycline Await tick panel viral studies. Note that COVID, HIV, influenza, RPR all neg ative Full code Lovenox for DVT prophylaxis May require outpatient Rocephin. Cannot rule out partially treated meningitis if tick titers and other cultures remain negative. Attestations Medical Necessity Statement*: Needs continued hospital stay for IV antibiotics secondary to meningitis Coding Level of Care Code Acute Chief Load Dispatcher for Chg Fwd Diagnoses Headache R51 Headache chronicity pattern: acute headache Headache type: unspecified Intractability: intractable Meningitis G03.9 Acute hyponatremia E87.1
[2019-12-10] MEDS: cefTRIAXone 2,000 MG in sodium chloride 0.9% (plus) 50 ML 100 MG IV ×2 (12:30→23:35)
[2019-12-10 15:02] LABS: Osmolality Urine 519 mOsm/kg (50-1200)
[2019-12-10] MEDS: enoxaparin 40 mg/0.4 mL Syringe SUBCUT (15:32)
[2019-12-10] MEDS: oxyCODONE 5 mg IR Tab/Cap PO (19:43)
[2019-12-10] MEDS: sodium chloride 0.9% 1,000 ML 50 ML IV (23:18)
[2019-12-11] VITALS (8 sets, daily range): BP systolic 113–150; BP diastolic 69–85; PULSE 73–90; RESP 16–18; TEMP 36.6–37.1; O2SAT 93–97; BMI 22.8
[2019-12-11 04:44] LABS: Basophils # 0.1 10^3/uL (0.0-0.1); Basophils % 0.9 %; Eosinophils # 0.1 10^3/uL (0.0-0.8); Eosinophils % 1.3 %; Hematocrit 44.8 % (42.0-52.0); Lymphocytes # 2.7 10^3/uL (0.8-4.8); Lymphocytes % 26.5 %; Mean Corpuscular HGB Conc 35.7 g/dL (30.0-36.0); Mean Corpuscular Hemoglobin 33.4 pg (28.0-34.0); Mean Corpuscular Volume 93.5 fL (80-94); Mean Platelet Volume 10.3 fL (7.4-10.4); Monocytes % 9.2 %; Neutrophils # 6.4 10^3/uL (1.8-7.7); Neutrophils % 61.7 %; Nucleated Red Blood Cells % 0 %; Platelet Count 263 10^3/cmm (130-400); Red Blood Count 4.79 10^6/uL (4.1-5.3); Red Cell Distribution Width 11.2 % (12.1-15.1); White Blood Count 10.3 10^3/uL (4.0-10.0)
[2019-12-11 05:03] LABS: Alanine Aminotransferase 14 U/L (0-41); Albumin Level 3.7 g/dL (3.5-5.2); Alkaline Phosphatase 65 IU/L (40-130); Aspartate Amino Transferase 12 U/L (0-40); Blood Urea Nitrogen 9 mg/dL (6-20); Calcium 8.8 mg/dL (8.5-10.5); Carbon Dioxide 23 mmol/L (22-29); Chloride 94 mmol/L (98-107); Globulin 2.5 g/dL (1.3-4.6); Glucose 102 mg/dL (65-115); Osmolality Calculated 262 mOsm/kg (285-295); Sodium 128 mmol/L (136-145); Total Bilirubin 0.4 mg/dL (0.15-1.2); Total Protein 6.2 g/dL (6.6-8.7)
[2019-12-11] MEDS: doxycycline 100 mg Tablet PO (09:27)
--- NOTE | 2019-12-11 10:27 | XR_ITS ---
WS: [id number] PORTABLE CHEST HISTORY: cough COMPARISON: 12/06/2019 Lungs are clear and well expanded. No pleural effusion or pneumothorax. Cardiac size: Normal. Mediastinum/Aorta: Normal mediastinum. No osseous abnormality seen. XR/XR chest 1V portable [id number] IMPRESSION: Unremarkable portable chest.
[2019-12-11] MEDS: cefTRIAXone 2,000 MG in sodium chloride 0.9% (plus) 50 ML 100 MG IV (13:01)
--- NOTE | 2019-12-11 15:06 | P.DS_ITS ---
Discharge Providers Date of Admission: 12/08/19 12:48 Date of Discharge: December 11, 2019 Attending Provider at Admission: Clair Sexton MD Attending Provider at Discharge: Shayan Lama MD Diagnoses at Discharge Discharge Diagnosis (1) Headache: Status: Acute Problem details: Improved Qualifiers: Headache chronicity pattern: acute headache Headache type: unspecified Intractability: intractable Qualified Code(s): R51 - Headache (2) Meningitis: Status: Acute Problem details: Discharge on Rocephin, 6 more days (3) Acute hyponatremia: Status: Acute Problem details: Stable Reason for Visit Reason for Visit: Reason For Visit: MENINGITIS Hospital Course Hospital Course: Ron is a 44-year-old white male who presented to the emergency department complained of a headache and neck stiffness. He reported this is been going on around 6 days, had had a high fever at home as high as 104, associated with chills. The presented to the emergency department initially and refused to stay. He had had some outpatient treatment with doxycycline, and then Levaquin. He had had history of tick bites in the past. He returned to the ER, where an LP was performed. This demonstrated pleocytosis, no organisms on Gram stain, elevated mononuclear cells as well as protein. Viral studies, tick studies, VDRL, etc. was ordered. He was placed on ceftriaxone. While in the hospital, doxycycline was added to his regimen. Headache improved significantly. Hyponatremia persisted but was stable. No elevation of liver function testing occurred. White blood cell count decreased to near normal. HIV, RPR, influenza studies were all negative along with COVID. Bacterial antigens were negative. As the patient was significantly better, requesting to go home, did not want to come back for Rocephin twice daily, we compromised after discussing the risks and benefits to continue Rocephin 2 g IV every 24 hours for 6 more days to get 10 days of IV treatment as a partially treated meningitis could not be excluded. Certainly if his other studies return to show viral etiology or tick pathology then this potentially could be stopped. He will get a BMP on Saturday, and follow-up with his primary care provider. Again risks and benefits were discussed and he reported he would return promptly for any worsening. At this point he will also complete a course of doxycycline. Physical Exam Narrative: EXAM NARRATIVE: General exam no apparent distress Cardiovascular regular rate and rhythm, no murmur Lungs clear Abdomen is soft with positive bowel sounds Extremities no cyanosis clubbing or edema Neuro no obvious focal deficits, alert oriented and ambulating with only mild headache 09/21 Discharge Data Data Completed and Pending: Completed Studies During Hospitalization Category Date Time Status XR chest 1V raul ble [id number] Routine Exams 12/11/19 10:27 Completed Pending at discharge Category Date Time Status Blood Culture Sta t Lab 12/08/19 10:30 Results Francisella Tular ensis DA Routine Lab 12/10/19 04:40 Received Lymes Disease Ant ibodies CSF Stat Lab 12/08/19 16:45 Received Miscellaneous Ena t Routine Lab 12/08/19 11:40 Received Respiratory Viral Panel PCR Stat Lab 12/08/19 23:08 Received [place] Enceph. Virus IFA CSF Stat Lab 12/08/19 11:40 Received Tick Panel Stat Lab 12/08/19 16:45 Received VDRL on CSF Stat Lab 12/08/19 11:40 Received Labs from last 24 hours 12/11/19 12/11/19 04:15 04:15 WBC 10.3 H RBC 4.79 Hgb 16.0 Hct 44.8 MCV 93.5 MCH 33.4 MCHC 35.7 RDW 11.2 L Plt Count 263 MPV 10.3 Neut % (Auto) 61.7 Lymph % (Auto) 26.5 Tyler % (Auto) 9.2 Eos % (Auto) 1.3 Baso % (Auto) 0.9 Neut # (Auto) 6.4 Lymph # (Auto) 2.7 Tyler # (Auto) 1.0 H Eos # (Auto) 0.1 Baso # (Auto) 0.1 Nucleated RBC % (a uto) 0 Nucleated RBCs # 0.0 Sodium 128 L Potassium 4.0 Chloride 94 L Carbon Dioxide 23 Anion Gap 15.0 BUN 9 Creatinine 0.8 GFR Calculation 106.0 Glucose 102 Calculated Osmolal ity 262 L Calcium 8.8 Total Bilirubin 0.4 AST 12 ALT 14 Alkaline Phosphata se 65 Total Protein 6.2 L Albumin 3.7 Globulin 2.5 Vitals: Last Vital Signs Temp 98 F 12/11/19 12:00 Pulse 77 12/11/19 12:00 Resp 18 12/11/19 12:00 BP 134/82 12/11/19 12:00 Pulse Ox 96 12/11/19 11:18 Discharge Plan Discharge Patient Disposition: Home, Self-Care Condition: Fair Prescriptions: New hydrocodone-acetaminophen 5-325 mg Tablet 2 tab PO Q4H PRN (Reason: Moderate To Severe Pain) Qty: 20 RF: 0 doxycycline monohydrate 100 mg Tablet 100 mg PO BID Qty: 20 RF: 0 ibuprofen 600 mg Tablet 600 mg PO Q6H PRN (Reason: Moderate Pain) Qty: 20 RF: 0 ceftriaxone 2 gram recon soln 2 gm IM DAILY Qty: 6 RF: 0 ceftriaxone 2 gram recon soln 2 gm IV Q24H Qty: 6 RF: 0 Discontinued multivitamin [Multiple Vitamins] Tablet 1 tab PO DAILY RF: 0 levofloxacin [Levaquin] 500 mg tablet 500 mg PO DAILY 10 Days RF: 0 Discharge Orders: Discharge Order (Routine); Ordered 12/11/19 Ordered By: Shayan Lama Referrals: Elbert Hutchison NP [Other] ([facility] Saturday @ 9:00 AM please bring you ID and 2019 taxes. ) Discharge Diet: Regular Discharge Activity: Increase activity as tolerated Patient Instructions: Doxycycline (By mouth), Ceftriaxone (Injection), Hydrocodone (By mouth), Headache, Viral Meningitis (DC) Activity Restrictions/Additional Instructions: Follow-up with primary care provider Saturday at outpatient surgery. Return for any concerns or worsening. Discharge Date/Time: 12/11/19 18:16 Discharge Attestations Time Spent in Discharge Care*: greater than 30 min Quality Metrics Clinical Quality Measures During this hospital stay, did patient experience: None Coding Level of Care Code Acute Home Specialist for Hawk Herrera Diagnoses Headache R51 Headache chronicity pattern: acute headache Headache type: unspecified Intractability: intractable Meningitis G03.9 Acute hyponatremia E87.1
[2019-12-14 09:17] LABS: Lyme AB Screen <0.90 index
--- NOTE | 2019-12-14 14:44 | PC.SOCIAL ---
Talked to since unable to reach he is staying at his [facility] where the service is patchy per . Advised that Dr Lama wanted me to see how is doing and to ensure has a follow up appt to establish care. said she is not exactly sure how he is doing she has not talked to him today but knows he is getting the IV med. She was unaware of the appt with Elbert Hutchison. As we discussed this in detail realized it is the same time as his appt for IV therapy. This nurse called to reschedule for 12/19/2019 arrival time of 2pm. made aware since unable to reach patient on his cell phone [phone]. wrote down the information and she has not been able to reach him between calls either yet. She was advised to call clinic ahead of time to see exactly what documents are needed to apply for slide and she was updated that the clinic does know that a BMP is recommended to be drawn at appt Saturday. We discussed that if patient does not attend appt at [facility] and does not call ahead of time to reschedule he will not be able to establish there in the future. She was asked to have patient give me call to update Dr Lama on how he is doing once she is able to get ahold of him.
[2019-12-15 16:11] LABS: Francisella Tularensis DA <1:20
[2019-12-15 22:11] LABS: VDRL on CSF NON-REACTIVE
[2019-12-15 22:37] LABS: Adenovirus Not Detected (Not Detected); Human Metapneumovirus Not Detected (Not Detected); Human Parainflu Virus 1 Not Detected (Not Detected); Human Parainflu Virus 2 Not Detected (Not Detected); Human Parainflu Virus 3 Not Detected (Not Detected); Human Rsv A Not Detected (Not Detected); Influenza A Not Detected (Not Detected); Influenza B Not Detected (Not Detected); Rhinovirus/Enterovirus Not Detected (Not Detected)
[2019-12-16 15:41] LABS: E. Chaffeensis AB IGG <1:64; E. Chaffeensis AB IGM <1:20
[2019-12-16 16:36] LABS: RMSF IGG NOT DETECTED; RMSF IGM NOT DETECTED
[2019-12-17 22:37] LABS: Lyme Disease AB (IGG),IBL NO BANDS DETECTED; Lyme Disease AB (IGM), IBL NO BANDS DETECTED
== END 2019-12-11 18:16 | disposition home or self-care (01) | DRG 98 ==
LOC: ER 13:32 → ICU 18:39 → MEDSURG 12-09 15:57
PROVIDERS: Admitting Provider Student in an Organized Health Care Education/Training Program; Emergency Provider Family Medicine; Family Provider General Practice; Visit Provider Internal Medicine
DX: G03.9 Meningitis, unspecified (principal); E87.1 Hypo-osmolality and hyponatremia; F17.210 Nicotine dependence, cigarettes, uncomplicated
CPT/HCPCS: 12345; 36415; 71045; 80053; 82533; 82945; 83605; 83935; 84157; 84300; 84443; 85025; 86000; 86403; 86592; 86617; 86618; 86653; 86666; 86757; 87040; 87070; 87075; 87205; 87529; 87635; 87806; 89050; 96372; 96375; 99284; J0696; J1100; J1200; J1650; J1885; J2270; J2405; J7030

== ENCOUNTER 2019-12-17 09:27 | Outpatient (RCR) | payer SELFPAY ==
[2019-12-12] MEDS: cefTRIAXone 2,000 MG in sodium chloride 0.9% (plus) 50 ML 100 MG IV (09:50)
[2019-12-12 10:05] VITALS: BP 94/64; PULSE 84; RESP 18; TEMP 36.7; O2SAT 95; BMI 25.0
[2019-12-13] MEDS: cefTRIAXone 2,000 MG in sodium chloride 0.9% (plus) 50 ML 100 MG IV (09:36)
[2019-12-13 09:45] VITALS: BP 101/68; PULSE 101; RESP 18; TEMP 36.3; O2SAT 98
[2019-12-14] MEDS: cefTRIAXone 2,000 MG in sodium chloride 0.9% (plus) 50 ML 100 MG IV (10:04)
[2019-12-14 10:07] VITALS: BP 104/71; PULSE 81; RESP 18; TEMP 36.7; O2SAT 97
[2019-12-14 10:49] LABS: Anion Gap 14.9 (5-19); Blood Urea Nitrogen 11 mg/dL (6-20); Calcium 9.1 mg/dL (8.5-10.5); Carbon Dioxide 25 mmol/L (22-29); Chloride 92 mmol/L (98-107); Glomerular Filtration Rate 81.9 mL/min (90-130); Glucose 108 mg/dL (65-115); Osmolality Calculated 263 mOsm/kg (285-295); Potassium 3.9 mmol/L (3.5-5.1); Sodium 128 mmol/L (136-145)
[2019-12-15 10:27] VITALS: BP 119/87; PULSE 84; RESP 18; TEMP 37.2; O2SAT 96
[2019-12-15] MEDS: cefTRIAXone 2,000 MG in sodium chloride 0.9% (plus) 50 ML 100 MG IV (10:30)
[2019-12-16] MEDS: cefTRIAXone 2,000 MG in sodium chloride 0.9% (plus) 50 ML 100 MG IV (09:45)
[2019-12-16 09:51] VITALS: BP 112/86; PULSE 79; RESP 18; TEMP 36.7; O2SAT 97
[2019-12-17 10:08] VITALS: BP 120/80; PULSE 82; RESP 16; TEMP 36.4; O2SAT 96
[2019-12-17] MEDS: cefTRIAXone 2,000 MG in sodium chloride 0.9% (plus) 50 ML 100 MG IV (10:09)
== END 2020-01-10 23:59 | disposition home or self-care (01) ==
LOC: OPS 09:27
PROVIDERS: Family Provider General Practice; Visit Provider Internal Medicine
DX: B99.9 Unspecified infectious disease (principal)
CPT/HCPCS: 36415; 80048; 96365; J0696